=== PATIENT | female | born 1965 | race Two or more races ===

== ENCOUNTER 2018-09-17 10:26 | Emergency (ER) | payer OTHER ==
[~2018-09-17] VITALS: Ht 165.1 cm; Wt 77.1 kg
--- NOTE | 2018-09-17 10:32 | NUR ---
PT BIB SELF C/O RIGHT NECK PAIN RADIATES TO R UPPER EXTREMITY PAIN X 4 DAYS, PT IS AAOX4, NOT IN RESPIRATORY DISTRESS, V/S STABLE, KEPT RESTED AND COMFORTABLE, AWAITING ER MD FOR EVAL.
--- NOTE | 2018-09-17 11:33 | NUR ---
Patient discharged to home in stable condition. Written and verbal after care instructions given. Patient verbalizes understanding of instruction.
[2018-09-17 11:34] VITALS: BP 129/86
== END 2018-09-17 11:36 | disposition home or self-care (01) ==
LOC: ER 10:27
DX: M54.12 Radiculopathy, cervical region (principal); Z90.710 Acquired absence of both cervix and uterus
CPT/HCPCS: 99283; A4606; Z7610

== ENCOUNTER 2020-08-24 15:35 | Emergency (ER) | payer OTHER ==
[~2020-08-24] VITALS: Ht 170.2 cm; Wt 72.6 kg
[2020-08-24 16:29] VITALS: BP 140/84
--- NOTE | 2020-08-24 18:10 | NUR ---
Patient discharged to home in stable condition. Written and verbal after care instructions given. Patient verbalizes understanding of instruction.
--- NOTE | 2020-08-25 19:06 | NUR ---
PATIENT MADE AWARE OF POSITIVE COVID RESULT, INFORMED PATIENT TO QUARANTINE X 14 DAYS.
== END 2020-08-24 18:13 | disposition home or self-care (01) ==
LOC: ER 15:40
DX: M25.511 Pain in right shoulder (principal); M25.561 Pain in right knee; U07.1 COVID-19; Z91.81 History of falling; Z90.710 Acquired absence of both cervix and uterus
CPT/HCPCS: 29105; 71045; 73030; 73564; 99284; C9803; U0003